=== PATIENT | female | born 1945 | race Caucasian/White ===

== ENCOUNTER → 2016-12-12 | Outpatient (CLI) | payer MEDICARE, OTHER ==
[~2016-12-12] MED LIST: AMBIEN DPS5 MG PO; BENADRYL-DPS25 MG PO; DULCOLAX-DPS10 MG PR; HEPARIN LO IV; LASIX DPS40 MG PO; LOPRESSOR DPS12.5 MG PO; LORTAB LIQUID D15 ML PO; MAALOX DPS30 ML PO; MILK OF MAGNESI10 ML PO; MIRALAX PACKET17 GM PO; MYLICON DPS80 MG PO; NEURONTIN250 MG/5 M PO; NORMAL SALINE FL5 ML IV; ONDANSETRON ODT8 MG PO; ROBITUSSIN100 MG/5 M PO; SODIUM CHLORID250 ML IV; SPIRONOLACT50 MG PO; TUMS DPS500 MG PO; TYLENOL DP650 MG/20. PO; ZOFRAN ODT4 MG PO; [UNRECOGNIZED DRUG - OTHER] PO
== END | disposition home or self-care (01) ==
LOC: RAD.S 08:41
DX: R13.19 Other dysphagia (principal); J38.01 Paralysis of vocal cords and larynx, unilateral; R49.0 Dysphonia

== ENCOUNTER → 2016-12-16 | Outpatient (CLI) | payer MEDICARE, OTHER | END | disposition home or self-care (01) | LOC: RAD.S 09:10 | DX: R13.19 Other dysphagia (principal); J38.01 Paralysis of vocal cords and larynx, unilateral; R49.0 Dysphonia ==

== ENCOUNTER 2017-01-08 07:47 | Day surgery (SDC) | payer MEDICARE, OTHER ==
[~2017-01-08] VITALS: Ht 165.1 cm; Wt 85.6 kg
--- NOTE | 2017-02-10 08:51 | OR ---
ADMIT: 01/08/2017 RM/LOC: [facility] MR#: [id number] [address] [id number] LEAH SHAW [address] [place] [address] Operative/Delivery Room Report SEX: F AGE: 71 : 1945 SURGERY DATE: 01/08/2017 SURGEON: Thony Escalante MD PRE-PROCEDURE DIAGNOSES: 1. Metastatic breast cancer. 2. Failure to thrive. 3. Aspiration pneumonia risk. POSTPROCEDURE DIAGNOSES: 1. Metastatic breast cancer. 2. Failure to thrive. 3. Aspiration pneumonia risk. PROCEDURE: 1. Right subclavian vein PowerPort placement. 2. EGD with PEG tube. INDICATIONS: The patient is a 71-year-old with metastatic breast cancer, unable to tolerate secretions, in need of adjuvant therapy for chemotherapy, presents for PowerPort placement and PEG tube placement. DESCRIPTION OF PROCEDURE: The patient was taken to the operating room, general endotracheal anesthesia was induced. The patient's chest was prepped and draped in normal sterile fashion. An introducer needle was placed in the right subclavian vein. A wire was threaded under fluoroscopic guidance into the right ventricle. [id number] pocket was made with a #15 blade cautery and blunt finger dissection. A dilator and sheath were placed over our wire. Our catheter was cut to 15 cm and assembled. Our catheter was then threaded through our sheath under fluoroscopic guidance with the tip in the right atrium. The catheter aspirated and flushed without difficulty, then was flushed with heparinized saline. The port was sutured to the pectoral fascia using 0 Prolene suture. The wound was closed with interrupted deep 3-0 Vicryl subdermal suture and a running 4-0 Vicryl subcuticular skin stitch. Wound was cleaned, dried, and dressed. We then placed the gastroscope down the oropharynx and down the esophagus, into the stomach through the pylorus. The ADMIT: 01/08/2017 RM/LOC: [facility] MR#: [id number] [address] [address] LEAH SHAW [address] [place] [address] Operative/Delivery Room Report SEX: F AGE: 71 : 1945 duodenum had some mild inflammation, stomach with mild inflammation. On retroflexion view, no hiatal hernia. GE junction appeared normal. There was no obstructive pathology within the stomach or esophagus. With transillumination and palpation, found a safe area in the left subcostal region that we prepped and draped, placed an Angiocath in the stomach, placed a wire through the Angiocath and grasped the wire with the wire loop, brought it out through the mouth, threaded the PEG tube over the top of our wire and brought it out through the anterior abdominal wall with skin markings at 5 cm. The G-tube was assembled. The gastroscope was reinserted down the oropharynx, down the esophagus, showing the G-tube in good position at the gastric body, antral junction with no complicating features. The patient was then extubated and wheeled to recovery room in good condition. Thony Escalante MD/ wil JOB #: [id number] CC: Thony Escalante, Attending Physician Michell Richmond, Family Physician
[2017-02-21] MEDS ORDERED: NEURONTIN250 MG/5 M PO (16:53)
[2017-02-21] MEDS ORDERED: ONDANSETRON ODT8 MG PO (16:56)
[2017-02-21] MEDS ORDERED: LOPRESSOR DPS12.5 MG PO (16:57)
[2017-02-21] MEDS ORDERED: MYLICON DPS80 MG PO (16:57)
[2017-02-21] MEDS ORDERED: LASIX DPS40 MG PO (16:57)
[2017-02-21] MEDS ORDERED: AMBIEN DPS5 MG PO (16:58)
[2017-02-21] MEDS ORDERED: SPIRONOLACT50 MG PO (16:58)
[2017-02-21] MEDS ORDERED: [UNRECOGNIZED DRUG - OTHER] PO (16:58)
[2017-02-21] MEDS ORDERED: LORTAB LIQUID D15 ML PO (16:59)
[2017-02-21] MEDS ORDERED: MAALOX DPS30 ML PO (16:59)
[2017-02-21] MEDS ORDERED: MIRALAX PACKET17 GM PO (17:00)
[2017-02-21] MEDS ORDERED: MILK OF MAGNESI10 ML PO (17:00)
[2017-02-21] MEDS ORDERED: TYLENOL DP650 MG/20. PO (17:01)
[2017-02-21] MEDS ORDERED: ROBITUSSIN100 MG/5 M PO (17:01)
[2017-02-21] MEDS ORDERED: TUMS DPS500 MG PO (17:01)
[2017-02-21] MEDS ORDERED: DULCOLAX-DPS10 MG PR (17:02)
[2017-02-21] MEDS ORDERED: HEPARIN LO IV (17:03)
[2017-02-21] MEDS ORDERED: NORMAL SALINE FL5 ML IV (17:03)
[2017-02-21] MEDS ORDERED: SODIUM CHLORID250 ML IV (17:06)
== END 2017-01-08 14:45 | disposition home or self-care (01) ==
LOC: SSS 07:47
PROC: 0DP64UZ Removal of Feeding Device from Stomach, Percutaneous Endoscopic Approach (ICD-10-PCS; principal; 2017-01-08)
PROC: 05H533Z Insertion of Infusion Device into Right Subclavian Vein, Percutaneous Approach (ICD-10-PCS; principal; 2017-01-08)
PROC: B516YZA Fluoroscopy of Right Subclavian Vein using Other Contrast, Guidance (ICD-10-PCS; principal; 2017-01-08)
DX: C50.919 Malignant neoplasm of unspecified site of unspecified female breast (principal); R62.7 Adult failure to thrive; M81.0 Age-related osteoporosis without current pathological fracture; Z86.010 Personal history of colon polyps; Z87.891 Personal history of nicotine dependence; Z88.0 Allergy status to penicillin; Z79.899 Other long term (current) drug therapy

== ENCOUNTER 2017-01-16 12:11 | Inpatient (IN) | payer MEDICARE, OTHER ==
[~2017-01-16] VITALS: Ht 165.1 cm; Wt 95.0 kg
[2017-01-21] MEDS ORDERED: NEURONTIN250 MG/5 M PO (17:47)
[2017-01-21] MEDS ORDERED: ZOFRAN ODT4 MG PO (17:48)
[2017-01-21] MEDS ORDERED: LORTAB LIQUID D15 ML PO (17:48)
[2017-01-21] MEDS ORDERED: BENADRYL-DPS25 MG PO (17:49)
--- NOTE | 2017-02-05 08:15 | HP ---
ADMIT: 01/16/2017 RM/LOC: [facility] MR#: [id number] [facility]#: [id number] [address] [id number] LEAH SHAW [address] [place] [address] History and Physical SEX: F AGE: 71 : 1945 DATE OF SERVICE: CHIEF COMPLAINT: Weakness. HISTORY OF PRESENT ILLNESS: The patient is a 71-year-old female, who we follow closely in the clinic for her metastatic breast cancer. She has had a recent decline in her health status that has led to her admission today. The patient was recently discovered to have progressive metastatic disease with extensive liver involvement and was therefore switched from her hormonal manipulation now to her first ever form of chemotherapy using weekly Taxol which we started on 12/31/2016. Her recent decline is mostly manifested as severe weakness and fatigue. She has been using a walker and wheelchair for most of her mobility. She actually had looked fairly decent last week, but over this past 4 or 5 days she has just declined to the point where the family is not able to care for her at home. She was in our treatment center this morning with IV fluids, but this did not seem to help her improve. We therefore felt it was appropriate for her to be admitted. She has also had severe malnutrition. She has likely a recurrent site of breast cancer near her esophagus that has impaired her swallowing function. We recently had a feeding tube placed which she has been using. She has suffered some falls this week. She today is unable to really lift her own body weight. She reports ongoing dizziness at times. She has ongoing pain somewhat diffusely. She states that she still wants to be aggressive with her cancer care. She is very adamant that she wants to be a full code status. She has had no fevers but is quite neutropenic today in our clinic with a total white count 1.9, and a neutrophil count of 0.2. Her hemoglobin is down to 7 which needs to be followed closely. Her platelets are 117. PAST MEDICAL HISTORY: The patient really has minimal chronic medical problems. She has this metastatic breast cancer that was a result of her original breast cancer in the left breast in 2012 that was grade 3, measuring 3.2 cm in size with 19/20 lymph nodes involved considered to be a high-risk stage III breast cancer. She subsequently underwent staging studies that showed her to have widespread metastatic bone involvement in December 2012. She was started on Faslodex and Arimidex, and then ultimately in 2015 was given Ibrance. By November 2016, she had progressive disease in the liver and in the right neck and therefore was switched to weekly Taxol therapy. MEDICATIONS: These were reviewed in her electronic chart. ALLERGIES: NO KNOWN DRUG ALLERGIES. SOCIAL HISTORY: The patient is retired. She is . She has a very supportive family. Her main caregiver is her son, who lives in [place]. FAMILY HISTORY: She is not aware of any recurrent hereditary malignancies in the family. REVIEW OF SYSTEMS: See HPI. Otherwise, complete review of systems was ADMIT: 01/16/2017 RM/LOC: [address] [facility] MR#: [id number] [address] [place] [id number] [place] [address] History and Physical SEX: F AGE: 71 : 1945 obtained and was negative. LABORATORY DATA: White count 1.9, hemoglobin 7.0, platelets 117, neutrophils 0.2. Creatinine 0.7, albumin 2.1, TSH 1.7. ASSESSMENT AND PLAN: 1. Failure to thrive with severe weakness and malnutrition. 2. Metastatic breast cancer with extensive liver involvement, currently on chemotherapy. 3. Pancytopenia secondary to chemotherapy. PLAN: I talked with the patient and her family at great length today. We tried quite hard in the clinic to give her aggressive supportive care the last few days to prevent a hospitalization, but she has not seen any improvement. She has gotten weaker through the week. I think she needs hospitalization for her own safety as she is not at this point safe to return home. We will continue with aggressive hydration in the hospital setting. She will be monitored closely for potential infection given her neutropenia. I have talked with her and the family and they are willing to consider a skilled care placement if she qualifies. She is going to have physical and occupational therapy. I will treat her with prophylactic Lovenox. We will follow her hemoglobin and transfuse her if needed. After a long discussion with her and the family, she does want to be a full code status. Huey Staley MD/ wil JOB #: [id number] CC: Huey Staley, Attending Physician Huey Staley, Family Physician
[2017-02-21] MEDS ORDERED: NEURONTIN250 MG/5 M PO (16:53)
[2017-02-21] MEDS ORDERED: ONDANSETRON ODT8 MG PO (16:56)
[2017-02-21] MEDS ORDERED: LASIX DPS40 MG PO (16:57)
[2017-02-21] MEDS ORDERED: MYLICON DPS80 MG PO (16:57)
[2017-02-21] MEDS ORDERED: LOPRESSOR DPS12.5 MG PO (16:57)
[2017-02-21] MEDS ORDERED: [UNRECOGNIZED DRUG - OTHER] PO (16:58)
[2017-02-21] MEDS ORDERED: SPIRONOLACT50 MG PO (16:58)
[2017-02-21] MEDS ORDERED: AMBIEN DPS5 MG PO (16:58)
[2017-02-21] MEDS ORDERED: LORTAB LIQUID D15 ML PO (16:59)
[2017-02-21] MEDS ORDERED: MAALOX DPS30 ML PO (16:59)
[2017-02-21] MEDS ORDERED: MILK OF MAGNESI10 ML PO (17:00)
[2017-02-21] MEDS ORDERED: MIRALAX PACKET17 GM PO (17:00)
[2017-02-21] MEDS ORDERED: ROBITUSSIN100 MG/5 M PO (17:01)
[2017-02-21] MEDS ORDERED: TYLENOL DP650 MG/20. PO (17:01)
[2017-02-21] MEDS ORDERED: TUMS DPS500 MG PO (17:01)
[2017-02-21] MEDS ORDERED: DULCOLAX-DPS10 MG PR (17:02)
[2017-02-21] MEDS ORDERED: HEPARIN LO IV (17:03)
[2017-02-21] MEDS ORDERED: NORMAL SALINE FL5 ML IV (17:03)
[2017-02-21] MEDS ORDERED: SODIUM CHLORID250 ML IV (17:06)
--- NOTE | 2017-03-06 07:27 | DS ---
ADMIT: 01/16/2017 RM/LOC: [facility] MR#: [id number] [address] [id number] LEAH SHAW [address] [place] [address] Discharge Summary SEX: F AGE: 71 : 1945 ADMISSION DATE: 01/16/2017 DISCHARGE DATE: 01/20/2017 FINAL DIAGNOSES: 1. Metastatic breast cancer. 2. Cough. 3. Dysphagia. 4. Malnutrition requiring G-tube feeding. 5. Deconditioning and failure to thrive. 6. Pancytopenia. CONSULTATIONS: None. HISTORY AND PHYSICAL: The patient is 71-year-old female, who has had progressive metastatic breast cancer recently started on chemotherapy regimen with fairly poor tolerance. She has had severe weakness and fatigue at home and is unable to safely be cared for. She has also had pancytopenia. Her blood pressure was low in our clinic. We ultimately decided to admit her for further workup for potential reversible causes. She was admitted to the Oncology service. HOSPITAL COURSE: The patient was admitted to the Oncology service and underwent transfusion, hydration, physical therapy, and other supportive interventions. She was treated with prophylactic anticoagulation throughout her stay. We ultimately did make some strength improvements and therapy thought that she was a good candidate for skilled rehab. She was therefore transferred to our rehab facility on 01/20/2017 with close followup planned in our clinic. Her chemotherapy will be held until she has been discharged from the skilled unit. Huey Staley MD/ wil JOB #: [id number] CC: Huey Staley MD, Attending Physician Huey Staley MD, Family Physician
== END 2017-01-20 13:30 | DRG 808 ==
LOC: 5MS 12:11
PROVIDERS: ADMIT Internal Medicine
PROC: 3E0G76Z Introduction of Nutritional Substance into Upper GI, Via Natural or Artificial Opening (ICD-10-PCS; principal; 2017-01-16)
DX: D61.810 Antineoplastic chemotherapy induced pancytopenia (principal); E43 Unspecified severe protein-calorie malnutrition; L89.153 Pressure ulcer of sacral region, stage 3; C78.7 Secondary malignant neoplasm of liver and intrahepatic bile duct; C79.51 Secondary malignant neoplasm of bone; D70.9 Neutropenia, unspecified; R13.10 Dysphagia, unspecified; C77.9 Secondary and unspecified malignant neoplasm of lymph node, unspecified; C79.89 Secondary malignant neoplasm of other specified sites; R53.1 Weakness; R00.0 Tachycardia, unspecified; Z85.3 Personal history of malignant neoplasm of breast

== ENCOUNTER 2017-01-20 12:19 | Inpatient (IN) | payer MEDICARE, OTHER ==
[~2017-01-20] VITALS: Ht 165.1 cm; Wt 99.1 kg
--- NOTE | ~2017-01-20 | PNE ---
"ADMIT DATE: 01/20/17 ROOM#: [id number] | MR#: [id number] | | [facility] KENYA SHAW | [place], [place] [address] | [facility] [id number] | | PHYSICAL THERAPY SEX: F AGE: 71 : [birth year] | PROGRESS NOTE EXTENSION Rehab Plan of Care Update Dr. Figueroa, This letter is regarding your patient, Kenya Shaw, at [facility], goal date of 02/07/17. The patient has progressed, but would benefit from further safety with gait, transfers, and balance training to allow for increased safety. We plan to extend this patient until 02/21/17 for restorative nursing care. PT 3x/week Please let me know if you have any questions or concerns with these goals or patient's plan of care. Thank you, Larissa Martin, PT, DPT Therapist Signature: Date: Physician Signature: Date: "
[2017-01-21] MEDS ORDERED: NEURONTIN250 MG/5 M PO (17:47)
[2017-01-21] MEDS ORDERED: LORTAB LIQUID D15 ML PO (17:48)
[2017-01-21] MEDS ORDERED: ZOFRAN ODT4 MG PO (17:48)
[2017-01-21] MEDS ORDERED: BENADRYL-DPS25 MG PO (17:49)
--- NOTE | 2017-01-26 15:32 | NUR ---
After talking to Dr Alicia I cut the Gtube just below the slit and re-applied the connector.
--- NOTE | 2017-01-31 09:02 | NUR ---
01/31/2017 0600 Remains in isolation for possible cdiff. 01/31/2017 0750 Out of isolation; cdiff specimen was negative.
--- NOTE | 2017-01-31 10:30 | NUR ---
PATIENT NOTE LEAH HAS BEEN ADMITTED TO [facility] SKILLED CARE FOR SHORT TERM REHAB TO HELP WITH BUILDING UP HER STRENGTH. SHE LIVES AT HOME HERE IN [place] WITH HER DAIANA AND HER GOAL IS TO RETURN. ALLISON DOES HAVE A DX. OF BREAST CA WITH METS, WEAKNESS AND FATIGUE. SHE HAS BEEN DOING HER OWN TUBE FEEDING AT HOME SO THIS IS NOT NEW TO HER. SHE HAS [facility] NURSING FOLLOWING HER AND RECEIVES HER FORMULA AND SUPPLIES FROM [facility]. LEAH IS HERE UNDER HER MEDICARE [employer] WITH THERAPY THE SKILLED SERVICES. SOCIAL WORK WILL FOLLOW AND ASSIST WITH D/C PLANNING WHEN APPROPRIATE AND WITH CONCERNS THEY ARISE.
--- NOTE | 2017-01-31 13:03 | NUR ---
INTERVIEW FOR MDS 3.0-PT. IS IN HER RECLINER, LISTENING TO THE TV. PT. IS ALERT, ORIENTED AND COGNTION IS INTACT. PT. CAN REPEAT ALL THREE WORDS BUT NEEDS CUES FOR THE COLOR BLUE AND SOCKS. PT. STATES PRIOR TO COMING INTO HOSPITAL OR SKILLED CARE, SHE WAS VERY WEAK AND HER STEP DTR CAME TO HELP HER, SHE HAD [facility] IN FOR ASSISTANCE ALSO. SHE STATES WHEN SHE GOES HOME SHE HOPES HER STEP DTR CAN RETURN AND HELP HER AND WOULD LIKE [facility] TO FOLLOW FOR BATH AID AND PT/OT IF ABLE. PT. STATES SHE IS A LITTLE DEPRESSED BECAUSE HER AND HIS DTR (HER STEP DTR IN LAW) GOT INTO SOME SORT OF ARGUMENT AND SHE WENT BACK HOME. SHE WANTED HER TO BE ABLE TO COME AND HELP HER WHEN SHE GETS HOME AND HOPE SHE WILL COME BACK. PT. ONLY CAN HAVE ICE CHIPS AND IS ON ENTERAL TUBE FEEDINGS. PT. STATES SHE SLEEPS PRETTY WELLL SOMETIMES AND OTHER TIMES NOT. MAY STAY UP REALLY LATE SOMETIMES BECAUSE SHE CANNOT SLEEP. PT. STATES ITS IMPORTANT TO PICK THE CLOTHES SHE WEARS,
--- NOTE | 2017-02-01 05:56 | NUR ---
REPORTED TO BOTH NURSES THAT PATIENT REFUSED TO GET OUT OF BED TO HAVE HER WEIGHT DONE THIS MORNING
--- NOTE | 2017-02-05 13:40 | NUR ---
PATIENT NOTE MET THIS AFTERNOON WITH TEOFILO AND HER SON SANJANA BY SPEAKER PHONE AND YANNI WITH PHYSICAL THERAPY. WE DISCUSSED D/C PLANS AND WHAT WOULD BE THE SAFEST PLACE FOR BRUNO ONCE D/C FROM HERE. PHYSICAL AND OCCUPATIONAL THERAPY WILL WORK WITH HER THROUGH 02/07 AND THEN SHE WILL BE RESTORATIVE CARE FROM 02/07 - 02/21. AT THIS TIME HOME IS NOT AN OPTION DUE TO HER HOARDS AND IT IS NOT A SAFE ENVIRONMENT FOR HER TO BE IN. SANJANA STATED THAT HIS HOME IN [place] WOULD NOT BE IN OPTION DUE TO SEVERAL STEPS. TEOFILO AND HER DO HAVE A RENTAL THAT WOULD WORK BUT IT CURRENTLY HAS RENTERS IN IT. SANJANA IS COMING TOMORROW TO VISIT [facility] AND TO FURTHER WORK ON THIS. I DID PRINT A MEDICAID APPLICATION OFF AND PUT IN HER ROOM SO HE CAN LOOK AT IT, BUT I LET HIM KNOW THAT WITH HER HAVING INCOME FROM A RENTAL AND THAT PROPERTY SHE MAY NOT QUALIFY. SOCIAL WORK WILL CONTINUE TO WORK ON D/C PLANNING AND WITH CONCERNS THEY ARISE.
--- NOTE | 2017-02-07 13:46 | NUR ---
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
--- NOTE | 2017-02-08 15:24 | NUR ---
PT WALKED FRM 1500 TO 1515.
--- NOTE | 2017-02-20 10:24 | NUR ---
called [facility] and reported off to charge nurse I did explain the oncology dr to follow and reported that the dr was to consult dr lyons for oncology reports
--- NOTE | 2017-02-20 14:34 | NUR ---
PATIENT NOTE TEOFILO HAS BEEN D/C TO THE [facility] PER HER AND HER SONS REQUEST. DR. ROLDAN CAME IN THIS A.M. TO GIVE D/C ORDERS AND THESE HAVE BEEN FAXED TO RAVEN BUTCHER, COAT JOINER AT THE [facility]. HER PHONE NUMBER [phone] AND FAX [phone]. DR. LISA FLYNN WILL BE HER PRIMARY CAREGIVER IN [place] AND ORDERS HAVE BEEN FAXED TO THAT OFFICE PER AND FAMILIES REQUEST. TEOFILO WAS EXCITED TO BE GOING AND THANKFUL FOR THE CARE SHE HAS RECEIVED.
[2017-02-21] MEDS ORDERED: NEURONTIN250 MG/5 M PO (16:53)
[2017-02-21] MEDS ORDERED: ONDANSETRON ODT8 MG PO (16:56)
[2017-02-21] MEDS ORDERED: MYLICON DPS80 MG PO (16:57)
[2017-02-21] MEDS ORDERED: LOPRESSOR DPS12.5 MG PO (16:57)
[2017-02-21] MEDS ORDERED: LASIX DPS40 MG PO (16:57)
[2017-02-21] MEDS ORDERED: AMBIEN DPS5 MG PO (16:58)
[2017-02-21] MEDS ORDERED: [UNRECOGNIZED DRUG - OTHER] PO (16:58)
[2017-02-21] MEDS ORDERED: SPIRONOLACT50 MG PO (16:58)
[2017-02-21] MEDS ORDERED: LORTAB LIQUID D15 ML PO (16:59)
[2017-02-21] MEDS ORDERED: MAALOX DPS30 ML PO (16:59)
[2017-02-21] MEDS ORDERED: MIRALAX PACKET17 GM PO (17:00)
[2017-02-21] MEDS ORDERED: MILK OF MAGNESI10 ML PO (17:00)
[2017-02-21] MEDS ORDERED: ROBITUSSIN100 MG/5 M PO (17:01)
[2017-02-21] MEDS ORDERED: TYLENOL DP650 MG/20. PO (17:01)
[2017-02-21] MEDS ORDERED: TUMS DPS500 MG PO (17:01)
[2017-02-21] MEDS ORDERED: DULCOLAX-DPS10 MG PR (17:02)
[2017-02-21] MEDS ORDERED: HEPARIN LO IV (17:03)
[2017-02-21] MEDS ORDERED: NORMAL SALINE FL5 ML IV (17:03)
[2017-02-21] MEDS ORDERED: SODIUM CHLORID250 ML IV (17:06)
== END 2017-02-20 10:19 | DRG 945 ==
LOC: SNU 12:19
PROVIDERS: ADMIT Internal Medicine
DX: R53.1 Weakness (principal); D61.810 Antineoplastic chemotherapy induced pancytopenia; E43 Unspecified severe protein-calorie malnutrition; D61.818 Other pancytopenia; L89.153 Pressure ulcer of sacral region, stage 3; C77.9 Secondary and unspecified malignant neoplasm of lymph node, unspecified; R13.10 Dysphagia, unspecified; C78.7 Secondary malignant neoplasm of liver and intrahepatic bile duct; C79.51 Secondary malignant neoplasm of bone; C79.89 Secondary malignant neoplasm of other specified sites; R19.7 Diarrhea, unspecified; R60.9 Edema, unspecified; G47.00 Insomnia, unspecified; R62.7 Adult failure to thrive; D72.829 Elevated white blood cell count, unspecified; R00.0 Tachycardia, unspecified; C50.912 Malignant neoplasm of unspecified site of left female breast; Z93.1 Gastrostomy status; Z11.1 Encounter for screening for respiratory tuberculosis